=== PATIENT | male | born 1965 | race Caucasian/White ===

== ENCOUNTER 2019-02-23 12:14 | Day surgery (SDC) | payer BC, OTHER ==
[~2019-02-23] VITALS: Ht 185.4 cm; Wt 79.7 kg
[2019-02-23 12:30] VITALS: BP 102/57
[2019-02-23] MEDS ORDERED: normal saline 1000ml 1,000 ML IV SCH (12:35)
[2019-02-23] MEDS ORDERED: fentaNYL/PF 50MCG/1 ML 2ML syringe ONE (12:43)
[2019-02-23] MEDS ORDERED: midazolam 2 mg/2 ml injection ONE (12:43)
[2019-02-23] MEDS ORDERED: LIDOcaine 1% w/EPI 1:100,000 30ml vial (MDV) ONE (12:43)
[2019-02-23] MEDS ORDERED: MAGN500C16 PO (12:44)
[2019-02-23] MEDS ORDERED: LACT1CAP65 PO (12:44)
[2019-02-23] MEDS ORDERED: SACU1TAB7 PO (12:44)
[2019-02-23] MEDS ORDERED: DIGO125T PO (12:44)
[2019-02-23] MEDS ORDERED: FISH12002 PO (12:44)
[2019-02-23] MEDS ORDERED: RIVA20TA PO (12:44)
[2019-02-23] MEDS ORDERED: MULT-933 PO (12:44)
[2019-02-23] MEDS ORDERED: UBID50TA3 PO (12:44)
[2019-02-23] MEDS ORDERED: CARV25TA2 PO (12:44)
[2019-02-23] MEDS ORDERED: EPLE25TA4 PO (12:44)
[2019-02-23 13:38] VITALS: BP 108/66
[2019-02-23 13:52] VITALS: BP 115/70
== END 2019-02-23 14:05 | disposition home or self-care (01) ==
LOC: SSTAY O 12:14
PROVIDERS: ATTEND Internal Medicine Cardiovascular Disease
DX: L76.34 Postprocedural seroma of skin and subcutaneous tissue following other procedure (principal); I42.9 Cardiomyopathy, unspecified
CPT/HCPCS: 10160; J2250; J3010; J3490; J7030